=== PATIENT | male | born 1965 | race Caucasian/White ===

== ENCOUNTER 2023-01-16 20:31 | Observation (INO) ==
[2023-01-17 00:45] LABS: ABS Monocytes 0.7 10^3/uL (0.0-1.1); ABS Neutrophils 6.9 10^3/uL (1.5-7.6); ABS Nucleated RBC 0.01 10^3/ul; Eosinophil % 0.3 %; Hematocrit 40.1 % (38-53); Hemoglobin 14.1 g/dL (13.2-16.3); Lymphocyte % 12.1 %; Mean Corpuscular Hemoglobin 33.8 pg (27-33); Mean Corpuscular Hgb Conc 35.3 g/dL (31-36); Mean Corpuscular Volume 95.9 fL (80-97); Mean Platelet Volume 7.1 fL (7.5-11.2); Nucleated Red Blood Cells % 0.2 /100 WBC (0.0-0.4); Platelet Count 200 10^3/uL (150-450); Red Blood Count 4.18 10^6/uL (4.06-5.63); Red Cell Distribution Width 12.3 % (12-17); White Blood Count 8.6 10^3/uL (3.6-10.2)
[2023-01-17 01:00] LABS: Albumin/Globulin Ratio 1.2 (1-3); C Reactive Protein 105.07 mg/L (<8.01); Calcium 8.6 mg/dL (8.6-10.3); Creatinine, Serum 1.33 mg/dL (0.67-1.17); Globulin 3.4 g/dL (2-4); Total Bilirubin 0.8 mg/dL (0.2-1.0); Total Protein 7.4 g/dL (6.4-8.9); eGFR CKD-EPI 62.7 (>60)
[2023-01-17] MEDS ORDERED: Piperacillin/Tazobac 3.375 BAG 3.375 GM/100 ML BAG IV ONE (04:35)
[2023-01-17] MEDS ORDERED: Gadoteridol (CONTRAST) 279.3 MG/ML 10 ML IV ONE (12:06)
[2023-01-17] MEDS ORDERED: Zosyn per Pharmacy NOTE FOLLOW UP SCH (14:00)
[2023-01-17] MEDS ORDERED: ZOSYN 3.375 GM x ONE DOSE over 30 miuntes IV ×2 (14:30→20:00)
[2023-01-17] MEDS ORDERED: Lidocaine 1% VIAL 10 MG/ML 30 ML VIAL ONE (15:41)
[2023-01-17] MEDS ORDERED: Lidocaine 2% PF 5 ML VIAL ONE (16:17)
[2023-01-17] MEDS ORDERED: fentaNYL 100 mcg/2 ml 50 MCG/ML VIAL ONE (16:17)
[2023-01-17] MEDS ORDERED: Propofol 10 MG/ML 20 ML BTL ONE (16:17)
[2023-01-17] MEDS ORDERED: Midazolam 2 mg/2 ml VIAL 1 mg/ml 2 ml VIAL (2 mg) ONE (16:17)
[2023-01-17] MEDS ORDERED: Dexamethasone IV 4 MG/ML VIAL 1 ml VIAL ONE (16:57)
[2023-01-17] MEDS ORDERED: Ondansetron 4 mg VIAL 2 MG/ML 2 ml VIAL ONE (16:57)
[2023-01-17] MEDS ORDERED: HYDROmorphone 1 MG/1 ML SYRINGE IV PRN (17:02)
[2023-01-17] MEDS ORDERED: Naloxone 0.4 mg VIAL 0.4 mg/ml 1 ml VIAL IV PRN (17:02)
[2023-01-18] MEDS ORDERED: ZOSYN 3.375 GM Q8H per EXTENDED INFUSION IV SCH (00:30)
[2023-01-18 06:13] LABS: ABS Lymphocytes 0.9 10^3/uL (1.0-4.8); ABS Monocytes 0.5 10^3/uL (0.0-1.1); ABS Neutrophils 7.4 10^3/uL (1.5-7.6); Hematocrit 39.2 % (38-53); Hemoglobin 13.7 g/dL (13.2-16.3); Lymphocyte % 10.5 %; Mean Corpuscular Hemoglobin 33.7 pg (27-33); Mean Corpuscular Hgb Conc 34.9 g/dL (31-36); Mean Corpuscular Volume 96.7 fL (80-97); Mean Platelet Volume 7.2 fL (7.5-11.2); Platelet Count 221 10^3/uL (150-450); Red Blood Count 4.05 10^6/uL (4.06-5.63); Red Cell Distribution Width 12.2 % (12-17); White Blood Count 8.8 10^3/uL (3.6-10.2)
[2023-01-18 06:30] LABS: Calcium 8.7 mg/dL (8.6-10.3); Creatinine, Serum 1.09 mg/dL (0.67-1.17); Potassium 4.2 mmol/L (3.5-5.0); eGFR CKD-EPI 79.7 (>60)
[2023-01-18] MEDS ORDERED: ZOSYN 3.375 GM x ONE DOSE over 30 miuntes IV (08:30)
[2023-01-18 10:10] VITALS: BP 152/92
== END 2023-01-18 13:45 | disposition home or self-care (01) ==
LOC: ED 20:31 → EDHOLD 20:31 → MED 01-17 15:04 → SSU 01-17 18:27
PROVIDERS: ADMIT Student in an Organized Health Care Education/Training Program; ATTEND Student in an Organized Health Care Education/Training Program